=== PATIENT | male | born 1965 | race Caucasian/White ===

== ENCOUNTER 2021-07-19 17:16 | Emergency (ER) | payer MEDICARE ==
[~2021-07-19] VITALS: Ht 177.8 cm; Wt 109.1 kg
[2021-07-19] MEDS ORDERED: HUMLIS7525 SQ (18:03)
[2021-07-19] MEDS ORDERED: EMPA10TA PO (18:06)
[2021-07-19] MEDS ORDERED: METO-391 PO (18:06)
[2021-07-19] MEDS ORDERED: LOSA100T58 PO (18:06)
[2021-07-19] MEDS ORDERED: SERT-162 PO (18:06)
[2021-07-19] MEDS ORDERED: NORT75CA PO (18:06)
[2021-07-19] MEDS ORDERED: ATOR40TA71 PO (18:06)
[2021-07-19 19:58] LABS: HEMATOCRIT 44.7 % (41-53); HEMOGLOBIN 15.1 g/dL (13.5-17.5); LYMPHOCYTES # (AUTO) 2.6 K/uL (1.0-4.8); LYMPHOCYTES % (AUTO) 21.6 % (22.0-44.0); MEAN CORPUSCULAR HEMOGLOBIN 28.5 pg (26.0-34.0); MEAN CORPUSCULAR HGB CONC 33.7 G/dL (31.0-37.0); MEAN CORPUSCULAR VOLUME 85 fL (80-100); MONOCYTES # (AUTO) 0.8 K/uL (0.1-1.0); NEUTROPHILS # (AUTO) 8.1 K/uL (1.8-7.7); NEUTROPHILS % (AUTO) 67.4 % (40.0-70.0); PLATELET COUNT (AUTO) 180 K/uL (150-450); RED BLOOD CELL COUNT(AUTO) 5.28 MIL/uL (4.50-5.90); RED CELL DISTRIBUTION WIDTH 14.6 % (11.5-14.5)
[2021-07-19 20:05] LABS: AMPHET/METH SCREEN,URINE NEGATIVE (NEGATIVE); BARBITURATE SCREEN, URINE NEGATIVE (NEGATIVE); BENZODIAZEPINES SCREEN,URINE NEGATIVE (NEGATIVE); CANNABINOID SCREEN,URINE NEGATIVE (NEGATIVE); COCAINE SCREEN,URINE NEGATIVE (NEGATIVE); METHADONE SCREEN, URINE NEGATIVE (NEGATIVE); OPIATE SCREEN,URINE NEGATIVE (NEGATIVE)
[2021-07-19 20:06] LABS: ANION GAP 11 mmol/L (8-16); CALCIUM, TOTAL 9.6 mg/dL (8.8-10.5); CARBON DIOXIDE 27 mmol/L (22-29); CHLORIDE 95 mmol/L (98-107); CREATININE 0.94 mg/dL (0.60-1.30); GLOMERULAR FILTR. RATE CALC > 60 mL/min (>60); GLUCOSE,RANDOM 231 mg/dL (70-110); POTASSIUM 3.8 mmol/L (3.5-5.1); SODIUM SERUM 133 mmol/L (136-145); UREA NITROGEN, BLOOD 19 mg/dL (7-18)
[2021-07-19 20:12] LABS: ALANINE AMINOTRANSFERASE 22 U/L (12-78); ALBUMIN 3.5 g/dL (3.4-5.0); ALKALINE PHOSPHATASE 91 U/L (46-116); ASPARTATE AMINOTRANSFERASE 9 U/L (15-37); BILIRUBIN,TOTAL 0.5 mg/dL (0.1-1.0); TOTAL PROTEIN, SERUM 8.2 g/dL (6.4-8.2)
[2021-07-19 20:14] LABS: PHENCYCLIDINE SCREEN,URINE NEGATIVE (NEGATIVE)
[2021-07-19] MEDS ORDERED: HYDROGEN PEROXIDE 118 ML SOLUTION TP ONE (20:30)
[2021-07-19] MEDS ORDERED: PANT-31 PO (20:42)
[2021-07-19] MEDS ORDERED: OXYB-34 PO (20:42)
[2021-07-19 20:48] VITALS: BP 139/77
== END 2021-07-19 21:23 | disposition home or self-care (01) ==
LOC: EMS 17:25
DX: S91.311A Laceration without foreign body, right foot, initial encounter (principal); E11.65 Type 2 diabetes mellitus with hyperglycemia; Z79.899 Other long term (current) drug therapy; X58.XXXA Exposure to other specified factors, initial encounter; Y93.89 Activity, other specified; Y92.89 Other specified places as the place of occurrence of the external cause; Y99.8 Other external cause status
CPT/HCPCS: 36415; 80053; 80307; 82962; 84484; 85025; 93005; 99284; G0480

== ENCOUNTER 2021-11-12 01:07 | Emergency (ER) | payer MEDICARE, MEDICAID ==
[~2021-11-12] VITALS: Ht 177.8 cm; Wt 115.9 kg
[~2021-11-12 01:07] MED LIST: ATOR40TA71 PO; EMPA10TA PO; HUMLIS7525 SQ; LOSA100T58 PO; METO-391 PO; NORT75CA PO; OXYB-34 PO; PANT-31 PO; SERT-162 PO
[2021-11-12 01:23] VITALS: BP 154/82
== END 2021-11-12 03:17 | disposition home or self-care (01) ==
LOC: EMS 01:07
DX: S90.821A Blister (nonthermal), right foot, initial encounter (principal); E11.9 Type 2 diabetes mellitus without complications; Z90.49 Acquired absence of other specified parts of digestive tract; W17.81XA Fall down embankment (hill), initial encounter; Y93.89 Activity, other specified; Y92.89 Other specified places as the place of occurrence of the external cause; Y99.8 Other external cause status
CPT/HCPCS: 99283